=== PATIENT | female | born 1980 ===

== ENCOUNTER 2025-04-14 06:00 | Day surgery (SDC) | payer OTHER ==
[2025-04-12 10:10] LABS: BASO % 0.5 % (0.1-1.2); EOS # 0.14 (0.04-0.54); EOS % 2.3 % (0.7-7.0); LYMPH # 1.50 (1.18-3.74); LYMPH % 25.1 % (19.3-53.1); MEAN PLATELET VOLUME 10.40 fl (9.4-12.4); MONO # 0.51 (0.24-0.82); MONO % 8.5 % (4.7-12.5); NEUT # 3.79 (1.56-6.13); NEUT % 63.4 % (34.0-71.1); RED CELL DISTRIBUTION WIDTH 13.0 % (11.6-14.4)
[2025-04-12 10:12] VITALS: BP 105/71
[2025-04-12 10:12] LABS: URINE APPEARANCE Clear; URINE BILIRRUBIN Negative (NEGATIVE); URINE BLOOD Negative; URINE COLOR Yellow; URINE GLUCOSE Negative (NEGATIVE); URINE KETONE Negative (NEGATIVE); URINE LEUKOCYTE Negative; URINE NITRATE Negative; URINE PROTEIN Negative (NEGATIVE); URINE UROBILINOGEN 0.2 E.U./dl
[2025-04-12 10:17] LABS: URINE BACTERIA 2146.5 uL (0.0-1933); URINE EPITHELIAL CELLS 29.6 uL (0.0-38.8); URINE RBC 39.8 uL (0.0-20.8); URINE WBC 9.2 uL (0.0-23.2)
[2025-04-12 10:30] LABS: INR 0.98
[2025-04-12 10:37] LABS: URINE CAST 0.87 uL (0.0-1.40)
[2025-04-12 10:51] LABS: RH POSITIVE
[2025-04-12 10:55] LABS: ALT/SGPT 17.0 U/L (12-78); AST/SGOT 11.0 U/L (15-37); BILIRUBIN TOTAL 0.45 mg/dL (0.3-1.2); BUN CREA RATIO 29.0 (7.0-25.0); CREATININE SERUM 0.56 mg/dL (0.55-1.02); GFR 116.54; GLOBULINA 3.1 G/DL (2.4-3.5); GLUCOSE FASTING 87.0 mg/dL (65-100); OSMOLALITY SERUM 282.0 MOSM/KG (275-295)
[~2025-04-14] VITALS: Ht 152.4 cm; Wt 72.6 kg
[2025-04-14] MEDS ORDERED: POVIDONE-IODINE 118 ML BOTT TOP ONE ×2 (07:42→08:15)
[2025-04-14] MEDS ORDERED: CHLORHEXIDINE GLUCONATE 120 ML BOTTLE TOP ONE (07:42)
[2025-04-14] MEDS ORDERED: RINGERS SOLUTION,LACTATED 1,000 ML IV SCH (08:45)
[2025-04-14] MEDS ORDERED: MORPHINE SULFATE 4 MG/ML VIAL IV ONE (10:00)
== END 2025-04-14 13:10 | disposition home or self-care (01) ==
LOC: CIR.AMB 06:00
PROVIDERS: ATTEND Student in an Organized Health Care Education/Training Program
DX: D25.9 Leiomyoma of uterus, unspecified (principal); N93.8 Other specified abnormal uterine and vaginal bleeding